=== PATIENT | male | born 2000 | race Caucasian/White ===

== ENCOUNTER 2018-03-21 19:46 | Emergency (ER) | payer OTHER ==
[~2018-03-21] VITALS: Ht 188 cm; Wt 72.7 kg
[2018-03-21 19:49] VITALS: BP 126/58; TEMP 98.7
[2018-03-21] MEDS ORDERED: CEPHALEXIN500 M1 PO (20:28)
[2018-03-21] MEDS ORDERED: PROPECIA1 MG PO (20:28)
[2018-03-21 20:31] VITALS: PULSE 85
== END 2018-03-21 20:33 | disposition home or self-care (01) ==
LOC: COL.ER 19:46
DX: S02.2XXA Fracture of nasal bones, initial encounter for closed fracture (principal); W21.05XA Struck by basketball, initial encounter; Y93.67 Activity, basketball

== ENCOUNTER 2018-05-04 13:34 | Emergency (ER) | payer OTHER ==
[~2018-05-04] VITALS: Ht 188 cm; Wt 72.7 kg
[~2018-05-04 13:34] MED LIST: CEPHALEXIN500 M1 PO; PROPECIA1 MG PO
[2018-05-04 14:08] VITALS: BP 124/65; PULSE 85; TEMP 98.6
== END 2018-05-04 14:36 | disposition left against medical advice (07) ==
LOC: COL.ER 13:34
DX: S91.312A Laceration without foreign body, left foot, initial encounter (principal); W25.XXXA Contact with sharp glass, initial encounter